=== PATIENT | female | born 1960 | race Caucasian/White ===

== ENCOUNTER → 2016-08-28 | Outpatient (CLI) | payer OTHER | LOC: MOB LAB 16:20 | PROVIDERS: ATTEND Family Medicine | DX: L29.0 Pruritus ani (principal); L29.8 Other pruritus | CPT/HCPCS: 87480; 87510; 87660 ==

== ENCOUNTER → 2016-09-29 | Outpatient (CLI) | payer OTHER ==
[2016-09-29 11:30] LABS: HEMATOCRIT 43.8 % (37.0-47.0); HEMOGLOBIN 15.3 g/dL (12.0-16.0); MEAN CORPUSCULAR HEMOGLOBIN 32.1 PG (27-31); MEAN CORPUSCULAR HGB CONC 34.9 g/dL (33-37); MEAN PLATELET VOLUME 10.7 FL (7.4-12.2); RED BLOOD COUNT 4.76 10^6/uL (4.20-5.40)
[2016-09-29 11:37] LABS: CHOL/HDL RATIO 5.84 RATIO (0-4.0); LDL CHOLESTEROL,CALCULATED 141.2 mg/dL
[2016-09-29 11:45] LABS: HEMOGLOBIN A1C 10.04 % (4.2-6.0)
[2016-09-29 11:53] LABS: FREE T4 (FREE THYROXINE) 1.21 ng/dL (0.93-1.71)
[2016-09-29 12:46] LABS: BLOOD UREA NITROGEN 17 mg/dL (7-22); BUN/CREATININE RATIO 28.33 (6-20); CALCIUM 9.3 mg/dL (8.7-10.7); EST GLOMERULAR FILTRATION > 60 (>60 ml/min/1.73m(2)); SERUM ALBUMIN 4.1 g/dL (3.5-4.8)
== END ==
LOC: MOB LAB 09:01
PROVIDERS: ATTEND Family Medicine
DX: Z00.00 Encounter for general adult medical examination without abnormal findings (principal)
CPT/HCPCS: 36415; 80053; 80061; 83036; 84439; 84443; 85027

== ENCOUNTER 2016-10-23 08:52 | Day surgery (SDC) | payer OTHER ==
[~2016-10-23 08:52] MED LIST: LIDOCAINE W/ SODIUM BICARB 0.5 ML SYR ONE; Lactated Ringers 1,000 ML PRIMARY IV ONE; fentaNYL Inj 100 MCG/2 ML VIAL ONE
[2016-10-23 09:30] VITALS: RESP 14; TEMP 97.2
--- NOTE | 2016-10-23 09:49 | GEN.OPNOTE ---
Colonoscopy Procedure Note Surgery Date: 10/23/16 Preoperative Diagnosis: Colon cancer screening Postoperative Diagnosis: Normal-appearing colon Procedure: Colonoscopy Surgeon: Jesus Flores MD Anesthesia Provider: Juan Louis CRNA Anesthesia Type: MAC Indications: Colon cancer surveillance Findings: Prep : Excellent Cecum : [employer] video colonoscopy scope inserted gadolinium it is cecum ileocecal valve clearly identified. Patient had normal-appearing: Ascending : Ascending colon was normal Transverse : Transverse colon had no polyps tumors or cancers Sigmoid : Descending and sigmoid colon free from disease Rectum : No abnormal pathology seen in the rectum Digital Rectal Exam : A lubricated flexible colonoscope was inserted and passed to the blind end of the cecum.
== END 2016-10-23 10:00 | disposition home or self-care (01) ==
LOC: SDSC 08:52
PROVIDERS: ATTEND Surgery
DX: Z12.11 Encounter for screening for malignant neoplasm of colon (principal)
CPT/HCPCS: 45378; J2704; J3010; J7120